=== PATIENT | male | born 1995 | race Caucasian/White ===

== ENCOUNTER 2023-05-05 21:09 | Emergency (ER) | payer OTHER ==
[2023-05-05 21:31] VITALS: BP 92/50; PULSE 72; RESP 16; TEMP 98.3; BMI 27.0
== END 2023-05-05 22:58 | disposition home or self-care (01) ==
LOC: FER 21:09
PROC: 2W3TX1Z Immobilization of Left Foot using Splint (ICD-10-PCS; principal; 2023-05-05)
DX: S82.302A Unspecified fracture of lower end of left tibia, initial encounter for closed fracture (principal); S82.442A Displaced spiral fracture of shaft of left fibula, initial encounter for closed fracture; S82.842A Displaced bimalleolar fracture of left lower leg, initial encounter for closed fracture; W09.8XXA Fall on or from other playground equipment, initial encounter; Y93.61 Activity, american tackle football
CPT/HCPCS: 73610-TC-LT-FY; 73630-TC-LT; 99283-25